=== PATIENT | female | born 1985 | race Caucasian/White ===

== ENCOUNTER 2023-05-09 15:41 | Emergency (ER) | payer OTHER, SELFPAY ==
[2023-05-09 16:05] VITALS: BP 103/67; PULSE 80; RESP 16; TEMP 36.7; O2SAT 100
--- NOTE | 2023-05-09 16:18 | ED.WOUNDLAC ---
HPI - Wound/Laceration General Chief Complaint: Wound/Laceration Stated Complaint: Cut Nose Time Seen by Provider: 05/09/23 16:05 Source: patient Mode of arrival: ambulatory Limitations: no limitations History of Present Illness HPI narrative: Alejandrina is a 38-year-old female patient presenting to clinic today with complaints of a laceration to the bridge of her nose. She reports she was trying to hang a mirror at home in the mirror fell and hit her in the nose. She denies that the mirror had broken. Denies any loss of consciousness. Does have some swelling to the bridge of the nose and to the mid forehead. This occurred approximately 1 hour prior to arrival Related Data Home Medications Medication Instructions Recorded Confirmed levonorgestrel 21 mcg/24 hours (8 See Rx Instructions .Route .COMPLEX 05/09/23 05/09/23 yrs) 52 mg intrauterine device (Mirena) Allergies Allergy/AdvReac Type Severity Reaction Status Date / Time No Known Allergies Allergy Verified 05/09/23 16:20 Review of Systems Review of Systems: Pertinent positives per HPI. Patient denies any fever, chills, rash, headache, visual changes, dizziness, cough, runny nose, sore throat, shortness of breath, chest pain, palpitations, nausea, vomiting, diarrhea, constipation, abdominal pain, or any urinary issues. PMFSH Comments At the time of my signature, I reviewed and agree with the nursing past medical, surgical, social, and family history. There is no relevant family history pertinent to the patient complaint. Exam Narrative: General: Well-developed, well nourished, in no apparent distress Head: Normocephalic, atraumatic. Cardio: Regular rate and rhythm, s1 and s2 normal, no murmur appreciated. Resp: Clear to auscultation bilaterally, no rhonchi, rales, wheezing or rubs. Integumentary: [place], warm, and dry, 1.5 cm vertical C laceration to the bridge of the left nose-very minimal gaping Course Course Emergency Course: Portions of this record may have been created with voice recognition software. Level of Care: Express Care Visit Vital Signs Vital signs: Vital Signs Temperature 36.7 C 05/09/23 16:05 Pulse Rate 80 05/09/23 16:05 Respiratory Rate 16 05/09/23 16:05 Blood Pressure 103/67 05/09/23 16:05 Pulse Oximetry 100 05/09/23 16:05 Temperature 36.7 C 05/09/23 16:05 Pulse Rate 80 05/09/23 16:05 Respiratory Rate 16 05/09/23 16:05 Blood Pressure 103/67 05/09/23 16:05 Pulse Oximetry 100 05/09/23 16:05 Vital signs reviewed MDM - Wound/Laceration MDM Narrative Medical decision making narrative: At the time of visit patient is resting comfortably on the exam table. Skin adhesive glue was used for wound closure. Patient tolerated procedure well. Supportive measures were discussed with the patient she voiced understanding discharge instructions agrees to treatment plan. Differential Diagnosis Differential diagnosis: Likely laceration, abrasion and avulsion of skin Discharge Plan Discharge Clinical Impression: Laceration of nose Patient Disposition: Home, Self-Care Condition: Stable Instructions: Antibiotic Form, Skin Adhesive Care (ED), Facial Laceration (ED) Additional Instructions: Skin wound glue was used to close wound-typically takes 5 days to heal Keep wound clean and dry Do not scrub, soak, or scratch area Watch for signs and symptoms of infection- redness, streaking, swelling, purulent discharge, or increase in pain. May apply Mederma cream to the affected area after wound heals Follow up with your PCP as needed Prescriptions: No Action Mirena 21 mcg/24 hours (8 yrs) 52 mg Intrauterine Device See Rx Instructions .ROUTE .COMPLEX Rx Instructions: 21 mcg intrauterinely Follow-up/Referrals: [facility], [Primary Care Provider] - Time of Disposition: 16:21 [facility] Nursing Documentation ED [facility] nursing documen
== END 2023-05-09 16:22 | disposition home or self-care (01) ==
PROVIDERS: Emergency Provider Nurse Practitioner Family
DX: S01.21XA Laceration without foreign body of nose, initial encounter (principal); W20.8XXA Other cause of strike by thrown, projected or falling object, initial encounter
CPT/HCPCS: 99212; G0463